=== PATIENT | male | born 1945 | race Caucasian/White ===

== ENCOUNTER → 2017-06-09 | Outpatient (CLI) | payer MEDICARE, OTHER ==
[2017-02-26 14:09] VITALS: BMI 25.1
[~2017-06-09] MED LIST: ACET-1966 PO; ALPR-1 PO; ALPR-429 PO; AMIT-104 PO; CELE-1 PO; CIPR250S3 PO; DICY-42 PO; DICY20TA70 PO; DOCU-416 PO; FLU60SYR30 IM ONLY; GLYC1SUP11 RC; GOLYTE PO; LACT1CAP6 PO; LEVO-85 PO; LEVO500T83 PO; LEVO50TA86 PO; METR-160 PO; MULT-1081 PO; NOR10 PO; ONDA4TAB PO; POLY17PO25 PO; TRAM-420 PO; ZOLP-1 PO
== END ==
LOC: LAB 10:52
PROVIDERS: ATTEND Internal Medicine Gastroenterology
DX: R19.7 Diarrhea, unspecified (principal)

== ENCOUNTER → 2017-06-16 | Outpatient (CLI) | payer MEDICARE, OTHER ==
[2017-02-26 14:09] VITALS: BMI 25.1
== END ==
LOC: LAB 09:28
PROVIDERS: ATTEND Internal Medicine Gastroenterology
DX: R19.7 Diarrhea, unspecified (principal)

== ENCOUNTER → 2017-07-26 | Outpatient (CLI) | payer MEDICARE, OTHER ==
[2017-02-26 14:09] VITALS: BMI 25.1
[~2017-07-26] MED LIST changes: +AMIT-106 PO
[2017-07-26 11:11] LABS: PLATELET COUNT, AUTOMATED 283 K/uL (150-450)
== END ==
LOC: LAB 10:41
PROVIDERS: ATTEND Internal Medicine
DX: E03.9 Hypothyroidism, unspecified (principal); D72.1 Eosinophilia
CPT/HCPCS: 36415; 84439; 84443; 85025

== ENCOUNTER 2017-11-03 11:21 | Emergency (ER) | payer MEDICARE, OTHER ==
[2017-02-26 14:09] VITALS: Wt 72.6 kg
--- NOTE | 2017-11-03 11:33 | EKG ---
[place] [facility] [place] ARTIE CHAVEZ : [id number] MR: [id number] V: [id number] EXAM DATE: ORDERING PHYSICIAN: VENANCIO THAKUR TECHNOLOGIST: ZACHARY Mckay Reason : Blood Pressure : / mmHG Vent. Rate : 080 BPM Atrial Rate : 080 BPM P-R Int : 190 ms QRS Dur : 096 ms QT Int : 400 ms P-R-T Axes : 045 032 044 degrees QTc Int : 461 ms Normal sinus rhythm No ST-T abnormalities No previous ECGs available Confirmed by RASTA WALTER ([id number]) on 11/03/2017 1:18:58 PM Referred By: BLAZE Confirmed By:RASTA WALTER
--- NOTE | 2017-11-03 11:41 | ER Report ---
History and Physical Time Seen By MD: 11:30 Hx. of Stated Complaint: patients found him unresponsive on their balcony. ems recorded a blood sugar of 46. he was given an amp of d-50 which brought him to 156 HPI/ROS CHIEF COMPLAINT: Syncope loss of consciousness HISTORY OF PRESENT ILLNESS: 72-year-old male who recently returned from a trip to the [place] was sitting on his porch after having a little bit of breakfast and was found by his to be unresponsive with pseudoseizure versus seizure activity patient was unresponsive on arrival by EMS with a glucose of 42 given an amp of glucose and reviving was mildly confused on arrival no history of syncope or seizure has a history of GI issues with bowel resection but this was years ago he is needs plenty sugar he does not have a diagnosis of diabetes patient has no additional complaints noted. On arrival to the emergency department is at his baseline mentation however he does think it' s 1918 but that's what they were discussing before he passed out with his A still thinks is in the [place] other than that no neurological deficits REVIEW OF SYSTEMS: Respiratory: No cough, no dyspnea. Cardiovascular: No chest pain, no palpitations. Gastrointestinal: No vomiting, no abdominal pain. Musculoskeletal: No back pain. Remainder of the 14 system rev: Yes Allergies: Coded Allergies: No Known Drug Allergies (Verified , 07/22/12) Home Meds Active Scripts Amitriptyline Hcl (AMITRIPTYLINE HCL) 25 Mg Tablet, 25 MG PO QHS daily Y for depression for 90 Days, #90 TAB 3 Refills Prov:NOREEN MCFARLANE MD 08/27/17 Amitriptyline Hcl (AMITRIPTYLINE HCL) 10 Mg Tablet, 25 MG PO QHS for 14 Days, # 14 TAB 1 Refill Prov:NOREEN MCFARLANE MD 07/26/17 Levothyroxine Sodium (LEVOTHYROXINE SODIUM) 50 Mcg Tablet, 0.5 TAB PO QDAY, #60 TAB 6 Refills Prov:NOREEN MCFARLANE MD 07/26/17 Alprazolam 0.25 Mg Tab (XANAX 0.25 MG TAB) 0.25 Mg Tablet, 0.5 TAB PO QHS, #30 TAB 0 Refills Prov:JULIUS SALDAÑA MD 05/18/17 Reported Medications Acetaminophen (TYLENOL) 325 Mg Tablet, 1-2 TAB PO PRN, TAB 03/05/17 Unable To Obtain Past Medical: Unable to Obtain/Update Reviewed Nurses Notes: Yes Old Medical Records Reviewed: Yes Hx Smoking: No Smoking Status: Never Smoker Constitutional Vital Sign - Last 24 Hours 11/03/17 11/03/17 11/03/17 11/03/17 11:24 11:25 11:30 11:51 Temp 97.9 Pulse 80 71 Resp 20 10 B/P (MAP) 151/88 146/97 (113) 151/88 (109) Pulse Ox 94 87 O2 Delivery Room Air 11/03/17 12:30 B/P (MAP) 116/66 (83) Physical Exam General Appearance: The patient is alert, has no immediate need for airway protection and no current signs of toxicity. [ ] Eyes: Pupils equal and round no injection. Respiratory: Chest is non tender, lungs are clear to auscultation. Cardiac: regular rate and rhythm [ ] Gastrointestinal: Abdomen is soft and non tender, no masses, bowel sounds normal. Musculoskeletal: Neck: Neck is supple and non tender. Extremities have full range of motion and are non tender. Skin: Small angled lip laceration GCS of 15 alert and oriented 2 no other focal deficits DIFFERENTIAL DIAGNOSIS: After history and physical exam differential diagnosis was considered for syncope versus seizure hypoglycemia her neurogenic syncope Medical Decision Making Data Points Result Diagram: 11/03/17 1146 11/03/17 1146 Laboratory Hematology Test 11/03/17 11:46 11/03/17 12:00 Red Blood Count 4.73 M/uL (4.00-5.60) Mean Corpuscular Volume 92.6 fL (80.0-96.0) Mean Corpuscular Hemoglobin 31.9 pg (26.0-33.0) Mean Corpuscular Hemoglobin Concent 34.5 g/dL (32.0-36.0) Red Cell Distribution Width 13.8 % (11.5-14.5) Mean Platelet Volume 6.9 fL (7.2-11.1) Neutrophils (%) (Auto) 56.7 % (39.4-72.5) Lymphocytes (%) (Auto) 21.8 % (17.6-49.6) Monocytes (%) (Auto) 8.7 % (4.1-12.4) Eosinophils (%) (Auto) 12.2 % (0.4-6.7) Basophils (%) (Auto) 0.6 % (0.3-1.4) Nucleated RBC Relative Count (auto) 0.0 /100WBC Neutrophils # (Auto) 3.6 K/uL (2.0-7.4) Lymphocytes # (Auto) 1.4 K/uL (1.3-3.6) Monocytes # (Auto) 0.6 K/uL (0.3-1.0) Eosinophils # (Auto) 0.8 K/uL (0.0-0.5) Basophils # (Auto) 0.0 K/uL (0.0-0.1) Nucleated RBC Absolute Count (auto) 0.00 K/uL Peripheral Blood Smear Yes Y/N D-Dimer Quantitative (PE/DVT) 0.47 ug/ml (0-0.50) Sodium Level 140 mmol/L (137-145) Potassium Level 3.6 mmol/L (3.5-5.0) Chloride Level 104 mmol/L (98-107) Carbon Dioxide Level 23 mmol/L (22-30) Blood Urea Nitrogen 15 mg/dl (9-21) Creatinine 0.90 mg/dl (0.66-1.25) Glomerular Filtration Rate Calc > 60.0 Random Glucose 129 mg/dl (75-110) Calcium Level 8.7 mg/dl (8.4-10.2) Total Bilirubin 0.5 mg/dl (0.2-1.3) Aspartate Amino Transf (AST/SGOT) 22 U/L (0-35) Alanine Aminotransferase (ALT/SGPT) 15 U/L (0-56) Alkaline Phosphatase 44 U/L (0-126) Troponin I < 0.012 ng/ml Total Protein 6.8 g/dl (6.3-8.2) Albumin 3.9 g/dl (3.5-5.0) Lipase 47 U/L (23-300) Thyroid Stimulating Hormone (TSH) 9.15 uIU/ml (0.46-4.68) Urine Color Yellow Urine Clarity Clear Urine pH 5.0 pH (4.8-9.5) Urine Specific [place] 1.021 Urine Protein 30 mg/dL (NEGATIVE) Urine Glucose (UA) 150 mg/dL (NEGATIVE) Urine Ketones Negative mg/dL (NEGATIVE) Urine Blood Small (NEGATIVE) Urine Nitrite Negative (NEGATIVE) Urine Bilirubin Negative (NEGATIVE) Urine Urobilinogen Negative mg/dL (0.2-1.9) Urine Leukocyte Esterase Negative (NEGATIVE) Urine RBC 2 /HPF (0-2/HPF) Urine WBC 1 /HPF (0-5/HPF) Urine Squamous Epithelial Cells Few /LPF (</=FEW) Urine Bacteria Negative /HPF (NONE-FEW) Urine Hyaline Casts Few /LPF (NONE-FEW) Urine Granular Casts Few /LPF (NONE) Urine Mucus Few /HPF (NONE-FEW) Urine Opiates Screen Negative Urine Barbiturates Screen Negative Ur Tricyclic Antidepressants Screen Positive Urine Phencyclidine Screen Negative Urine Amphetamines Screen Negative Urine Benzodiazepines Screen Negative Urine Cocaine Screen Negative Urine Cannabinoids Screen Negative Chemistry Test 11/03/17 11:46 11/03/17 12:00 White Blood Count 6.4 k/uL (4.5-11.0) Red Blood Count 4.73 M/uL (4.00-5.60) Hemoglobin 15.1 g/dL (14.0-18.0) Hematocrit 43.8 % (42.0-52.0) Mean Corpuscular Volume 92.6 fL (80.0-96.0) Mean Corpuscular Hemoglobin 31.9 pg (26.0-33.0) Mean Corpuscular Hemoglobin Concent 34.5 g/dL (32.0-36.0) Red Cell Distribution Width 13.8 % (11.5-14.5) Platelet Count 232 K/uL (150-450) Mean Platelet Volume 6.9 fL (7.2-11.1) Neutrophils (%) (Auto) 56.7 % (39.4-72.5) Lymphocytes (%) (Auto) 21.8 % (17.6-49.6) Monocytes (%) (Auto) 8.7 % (4.1-12.4) Eosinophils (%) (Auto) 12.2 % (0.4-6.7) Basophils (%) (Auto) 0.6 % (0.3-1.4) Nucleated RBC Relative Count (auto) 0.0 /100WBC Neutrophils # (Auto) 3.6 K/uL (2.0-7.4) Lymphocytes # (Auto) 1.4 K/uL (1.3-3.6) Monocytes # (Auto) 0.6 K/uL (0.3-1.0) Eosinophils # (Auto) 0.8 K/uL (0.0-0.5) Basophils # (Auto) 0.0 K/uL (0.0-0.1) Nucleated RBC Absolute Count (auto) 0.00 K/uL Peripheral Blood Smear Yes Y/N D-Dimer Quantitative (PE/DVT) 0.47 ug/ml (0-0.50) Glomerular Filtration Rate Calc > 60.0 Calcium Level 8.7 mg/dl (8.4-10.2) Total Bilirubin 0.5 mg/dl (0.2-1.3) Aspartate Amino Transf (AST/SGOT) 22 U/L (0-35) Alanine Aminotransferase (ALT/SGPT) 15 U/L (0-56) Alkaline Phosphatase 44 U/L (0-126) Troponin I < 0.012 ng/ml Total Protein 6.8 g/dl (6.3-8.2) Albumin 3.9 g/dl (3.5-5.0) Lipase 47 U/L (23-300) Thyroid Stimulating Hormone (TSH) 9.15 uIU/ml (0.46-4.68) Urine Color Yellow Urine Clarity Clear Urine pH 5.0 pH (4.8-9.5) Urine Specific [place] 1.021 Urine Protein 30 mg/dL (NEGATIVE) Urine Glucose (UA) 150 mg/dL (NEGATIVE) Urine Ketones Negative mg/dL (NEGATIVE) Urine Blood Small (NEGATIVE) Urine Nitrite Negative (NEGATIVE) Urine Bilirubin Negative (NEGATIVE) Urine Urobilinogen Negative mg/dL (0.2-1.9) Urine Leukocyte Esterase Negative (NEGATIVE) Urine RBC 2 /HPF (0-2/HPF) Urine WBC 1 /HPF (0-5/HPF) Urine Squamous Epithelial Cells Few /LPF (</=FEW) Urine Bacteria Negative /HPF (NONE-FEW) Urine Hyaline Casts Few /LPF (NONE-FEW) Urine Granular Casts Few /LPF (NONE) Urine Mucus Few /HPF (NONE-FEW) Urine Opiates Screen Negative Urine Barbiturates Screen Negative Ur Tricyclic Antidepressants Screen Positive Urine Phencyclidine Screen Negative Urine Amphetamines Screen Negative Urine Benzodiazepines Screen Negative Urine Cocaine Screen Negative Urine Cannabinoids Screen Negative Coagulation Test 11/03/17 11:46 D-Dimer Quantitative (PE/DVT) 0.47 ug/ml Toxicology Test 11/03/17 12:00 Urine Opiates Screen Negative Urine Barbiturates Screen Negative Ur Tricyclic Antidepressants Screen Positive Urine Phencyclidine Screen Negative Urine Amphetamines Screen Negative Urine Benzodiazepines Screen Negative Urine Cocaine Screen Negative Urine Cannabinoids Screen Negative Urinalysis Test 11/03/17 12:00 Urine Color Yellow Urine Clarity Clear Urine pH 5.0 pH (4.8-9.5) Urine Specific [place] 1.021 Urine Protein 30 mg/dL (NEGATIVE) Urine Glucose (UA) 150 mg/dL (NEGATIVE) Urine Ketones Negative mg/dL (NEGATIVE) Urine Blood Small (NEGATIVE) Urine Nitrite Negative (NEGATIVE) Urine Bilirubin Negative (NEGATIVE) Urine Urobilinogen Negative mg/dL (0.2-1.9) Urine Leukocyte Esterase Negative (NEGATIVE) Urine RBC 2 /HPF (0-2/HPF) Urine WBC 1 /HPF (0-5/HPF) Urine Squamous Epithelial Cells Few /LPF (</=FEW) Urine Bacteria Negative /HPF (NONE-FEW) Urine Hyaline Casts Few /LPF (NONE-FEW) Urine Granular Casts Few /LPF (NONE) Urine Mucus Few /HPF (NONE-FEW) ED Course/Re-evaluation ED Course ED clinical course in a 2-year-old male who had been found unresponsive hypoglycemic on his porch by his brought in repeat insulin after an amp of glucose was given wasn't sugar was 142 patient was fed labs were consistent with hypoglycemia initially but also consistent with hypothyroidism wrist was workup as a head CT abdominal pelvis looking for insulinomas this was all negative head CT was negative for acute intracranial abnormality chest x-ray showed no abnormality of his chest EKG and respiratory worker were were normal patient will be diagnosed with hypothyroidism subsequent secondary hypoglycemia which caused a syncopal versus seizure episode will follow with primary care does have a history of hypoglycemia a correction has a history of hyperthyroidism and hypothyroidism which is been medicated he's Noller currently on medication will follow up with primary care Decision to Disposition Date: Nov 03, 2017 Decision to Disposition Time: 13:41 Depart Departure Latest Vital Signs Vital Signs Date Time Temp Pulse Resp B/P (MAP) Pulse Ox O2 Delivery O2 Flow Rate FiO2 11/03/17 12:30 116/66 (83) 11/03/17 11:51 71 10 87 11/03/17 11:24 97.9 Room Air Impression: Primary Impression: Hypothyroidism Condition: Improved Disposition: HOME OR SELF-CARE Referrals: LAINE BERGMAN MD 5 Days Patient Instructions: Hypothyroidism (DC) VENANCIO THAKUR MD Nov 03, 2017 11:41
[2017-11-03 11:52] LABS: PLATELET COUNT, AUTOMATED 232 K/uL (150-450)
[2017-11-03] MEDS ORDERED: IOPAMIDOL 76% 75 ML INFUS BTL 75 ML ONE (11:58)
--- NOTE | 2017-11-03 12:42 | RADIOLOGY IMAGING REPORT ---
FACILITY: [facility] PATIENT NAME: Otto Soto : 1945 MR: [id number] V: [id number] EXAM DATE: ORDERING PHYSICIAN: VENANCIO THAKUR TECHNOLOGIST: Location: [facility] Patient: Otto Soto : 1945 Visit/Account:[id number] Date of Sevice: 11/03/2017 CHEST PA AND LAT INDICATION: cp COMPARISON: None available FINDINGS: Heart size within normal limits. There is no focal infiltrate or lobar consolidation. There is no pneumothorax or pleural effusion. IMPRESSION: 1. No acute cardiopulmonary process. Report Dictated By: Dennys Flowers at 11/03/2017 12:37 PM Report E-Signed By: Dennys Flowers at 11/03/2017 12:38 PM WSN:[id number]
--- NOTE | 2017-11-03 13:07 | RADIOLOGY IMAGING REPORT ---
FACILITY: [facility] [place] PATIENT NAME: Otto Soto : 1945 MR: [id number] V: [id number] EXAM DATE: ORDERING PHYSICIAN: VENANCIO THAKUR TECHNOLOGIST: [place] [facility] [place] : 1945 Visit/Account:[id number] Date of Sevice: 11/03/2017 COMPUTED TOMOGRAPHY OF THE Abdomen and Pelvis with CONTRAST INDICATION: Reportedly loss of consciousness. TECHNIQUE: Contiguous axial 3.[address] images were obtained through the abdomen and pelvis after 75 c c [id number]. Coronal and sagittal reformatted images were submitted. COMPARISON: CT abdomen of March 19, 2017. FINDINGS: Lung bases: Mild atelectasis at the lung bases. Liver and hepatic vasculature: Minimal fatty infiltration adjacent to the falciform. No ascites. No focal lesion. Gallbladder and bile ducts: Normal gallbladder. Spleen: Normal Pancreas: Desiccation at pancreatic tail is nonspecific and could be sequelae from old pancreatitis. No pancreatic duct dilation or evidence of acute pancreatitis. Adrenals: Normal Kidneys, ureters and bladder: No hydronephrosis or collecting system obstruction. There is a small p arapelvic cyst on the left. The bladder is obscured by streak artifact from the right hip prosthesis. Retroperitoneum and aorta: Scattered aortic atherosclerosis. No aneurysm. GI tract, mesentery and peritoneum: Normal appendix. No bowel obstruction. No free fluid or free air. There does appear to be a rectosigmoid anastomosis. No apparent thickening or mass in the adjacent r egion with this area partially obscured by streak artifact. Prostate: Obscured by streak artifact. Bones and soft tissues: No acute osseous abnormality. Multilevel degenerative findings in the thoraco lumbar spine. IMPRESSION: 1. No evidence of acute intra-abdominal abnormality. One of the following dose optimization techniques was utilized in the performance of this exam: Autom ated exposure control; adjustment of the mA and/or kV according to the patient's size; or use of an i terative reconstruction technique. Specific details can be referenced in the facility's radiology C T exam operational policy. Report Dictated By: Abisai Jordan MD at 11/03/2017 12:46 PM Report E-Signed By: Abisai Jordan MD at 11/03/2017 1:03 PM WSN:[id number]
--- NOTE | 2017-11-03 13:08 | RADIOLOGY IMAGING REPORT ---
[place] [facility] [place] NAME: Otto Soto : 1945 MR: [id number] V: [id number] EXAM DATE: ORDERING PHYSICIAN: VENANCIO THAKUR TECHNOLOGIST: [place] [facility] [place] Otto Soto : 1945 Visit/Account:[id number] Date of Sevice: 11/03/2017 HEAD W/O CONTRAST EXAMINATION: CT head/brain without contrast HISTORY: Loss of consciousness. Seizure. TECHNIQUE: Contiguous axial images were obtained from the skull base to the vertex without intravenou s contrast. One of the following dose optimization techniques was utilized in the performance of this exam: Autom ated exposure control; adjustment of the mA and/or kV according to the patient's size; or use of an i terative reconstruction technique. Specific details can be referenced in the facility's radiology C T exam operational policy. COMPARISON STUDIES: None FINDINGS: Ventricles/sulci/fissures: Midline in position and normal in configuration. Masses/hemorrhage/midline shift: No hemorrhage or mass lesions. White matter: No white matter lesions noted. Lopez-white differentiation: Negative Extra-axial spaces: No subdural or epidural fluid collections. No subarachnoid blood Dural venous sinuses/arterial structures: Negative Skull base/calvarium: Negative Visualized mastoid air cells/paranasal sinuses: Negative IMPRESSION: Negative CT scan of the head for acute intracranial pathology. Report Dictated By: Ki Burgos MD at 11/03/2017 1:01 PM Report E-Signed By: Ki Burgos MD at 11/03/2017 1:04 PM WSN:[email or web address]
[2017-11-03 13:30] VITALS: BP 142/88
== END 2017-11-03 13:52 | disposition home or self-care (01) ==
LOC: ER 11:28
DX: E03.9 Hypothyroidism, unspecified (principal)
CPT/HCPCS: 36415; 36416; 70450; 71046; 74177; 80305; 81001; 82948; 83690; 84443; 84484; 85025; 85379; 93005; 99284; Q9967; 82040; 82247; 82310; 82374; 82435; 82565; 82947; 84075; 84132; 84155; 84295; 84450; 84460; 84520

== ENCOUNTER → 2017-11-03 | Outpatient (CLI) | payer MEDICARE, OTHER ==
[2017-02-26 14:09] VITALS: BMI 25.1
== END ==
LOC: AMB 10:52
PROVIDERS: ATTEND Nurse Practitioner
DX: R40.4 Transient alteration of awareness (principal); R56.9 Unspecified convulsions; R06.00 Dyspnea, unspecified
CPT/HCPCS: A0425; A0427

== ENCOUNTER 2018-06-29 00:30 | Day surgery (SDC) | payer MEDICARE, OTHER ==
[2017-02-26 14:09] VITALS: Ht 172.7 cm; Wt 78.5 kg
[~2018-06-29] VITALS: Ht 172.7 cm; Wt 78.5 kg
[2018-06-29] VITALS (7 sets, daily range): BP systolic 85–128; BP diastolic 57–85
[~2018-06-29 00:30] MED LIST changes: +FLUO-201 PO; -METR-160 PO; +METR500T15 PO
[2018-06-29] MEDS ORDERED: NORMOSOL R SOLN(*) 1000 ML BAG 1,000 ML IV PRN (08:20)
[2018-06-29] MEDS ORDERED: LIDOCAINE/SOD BICARB 8.4% SYR ID ONE (08:20)
[2018-06-29] MEDS ORDERED: PROPOFOL EMUL(*) 10MG/ML 20 ML 40 ML ONE (09:40)
--- NOTE | 2018-06-29 10:12 | Short(Outpt) Discharge Summary ---
Discharge Summary Reason for Hosp/Final Diag: (1) History of colon polyps Status: Chronic Hospital Course & Plan: Colonoscopy completed without problems. (2) S/P colectomy Status: Chronic Departure Discharge to: Home, Self Care Discharge Instructions Home Meds Active Scripts Peg/Electrolytes (GOLYTELY SOLUTION) 4,000 Ml Soln, 1 GAL PO ONCE, #1 GAL 0 Refills Prov:JULIUS SALDAÑA MD 04/22/18 Reported Medications Amitriptyline Hcl (AMITRIPTYLINE HCL) 25 Mg Tablet, 0.5 TAB PO QHS, #5 TAB 06/16/18 Levothyroxine Sodium (LEVOTHYROXINE SODIUM) 50 Mcg Tablet, 50 MCG PO QDAY, TAB 06/16/18 Fluoxetine Hcl (PROZAC) 10 Mg Capsule, 10 MG PO QDAY, CAPSULE 11/24/17 Diet: Regular Activity: As Tolerated Special Instructions: Your colonoscopy was completed without any problems and your prep was excellent (Good Job!!). I didn't find any polyps or any other abnormalities and your anastomosis is well healed and wide open. My office will call you in the next week with your TSH results and levothyroxine instructions. I recommend that you have another colonoscopy in 5 years. JULIUS SALDAÑA MD Jun 29, 2018 10:12
--- NOTE | 2018-06-29 11:35 | NUR ---
1005: LUNG SOUNDS CLEAR, PT IS SLEEPING, HYPOACTIVE BOWL SOUNDS, STEFANIA AT BEDSIDE 1024: PT WAKES 1026: PT MOVED TO BY YAN LOPEZ RN, MAINTAINING SATS 1030: PT GIVEN WATER TOLERATED WELL 1033: PT GIVEN PUDDING, CHEESE, AND CRACKERS, TOLERATED WELL 1045: DR SALDAÑA AT BEDSIDE 1050: PT STATES HE IS READY TO GO HOME 1111: NO SIGNIFICANT CHANGES DURING ORTHOSTATIC PB'S 1115: DISCHARGE INSTRUCTIONS GIVEN, PT AND STATE UNDERSTANDING 1120: PT DRESSING 1127: IV DC'ED WITH CATH INTACT, PRESSURE DRESSING APPLIED 1130: PT WALKED TO CAR BY Anuj JORDAN RN
== END 2018-06-29 11:30 | disposition home or self-care (01) ==
LOC: OR 00:30
PROVIDERS: ATTEND Surgery
DX: Z12.11 Encounter for screening for malignant neoplasm of colon (principal); Z86.010 Personal history of colon polyps; E03.9 Hypothyroidism, unspecified
CPT/HCPCS: 00812; 36415; 83516; 84443; G0121; J2704